=== PATIENT | female | born 1995 | race Two or more races ===

== ENCOUNTER 2016-11-21 09:18 | Day surgery (SDC) | payer BC ==
--- NOTE | 2016-11-20 14:30 | Pre-op HX & Phy Repo 2 SIG ---
DATE OF ADMISSION: 11/21/2016 PREOPERATIVE HISTORY AND PHYSICAL This patient has been scheduled for surgery tomorrow, which is 11/21/2016. CHIEF COMPLAINT: Pain and lump in the right axilla. HISTORY OF PRESENT ILLNESS: This is a 21-year-old female, who presented with pain and lump in the right axilla. She stated that she had an uncomplicated adenitis, which was treated conservatively and resolved, but about 5 to 6 days ago she developed a lump and pain, which has increased. She denied any fever or chills at this point. PAST MEDICAL HISTORY: She denies allergies, asthma, hypertension, cardiac or renal diseases. She has a history of diabetes type 1. PAST SURGICAL HISTORY: None. MEDICATIONS: Include insulin, gemfibrozil, niacin . SOCIAL HISTORY: The patient is a 21-year-old female, who is single without any children. 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 She denies smoking or drinking. REVIEW OF SYSTEMS: Noncontributory. PHYSICAL EXAMINATION: GENERAL: The patient appeared to be a well-developed, well-nourished, 31-year-old female, complaining of pain in the right axilla. HEENT: Head is normocephalic and atraumatic. Eyes, pupils are equal, round, and reactive to light. Mouth is clear. NECK: There is no palpable thyromegaly or adenopathy. CHEST: Clear to auscultation and percussion. HEART: There is no gallop or murmur. S1 and S2 are within normal limits. ABDOMEN: Soft, flat, and nontender. There is no palpable organomegaly. AXILLA: At the right axilla, the patient had a large abscess with frustration and erythema. Mid aspiration revealed thick pus. ASSESSMENT: 1. Abscess of the right axilla. PLAN: The patient has been scheduled for I and D of the abscess of the right axilla. The risks and benefits have been explained to her. The patient has been notified that she will have the change the dressing of infected wound till it healed up. She understood and granted consent form. Domenica Santiago M.D. DR: Concetta JOB#: [id number] CC: ADAM
[~2016-11-21] VITALS: Ht 154.9 cm; Wt 61.2 kg
[2016-11-21] VITALS (11 sets, daily range): BP systolic 115–138; BP diastolic 54–73
[~2016-11-21 09:18] MED LIST: APIDRA100 UNIT/2 SQ; CRESTOR10 M2 ORAL; GEMFIBROZIL600 MG ORAL; LANTUS SOL100 UNIT/1 SUBQ; NIACIN500 M1 PO; TOPIRAMATE25 MG ORAL
[2016-11-21] MEDS ORDERED: Bacitracin 50000 Units Vial ONE (09:38)
[2016-11-21 10:05] LABS: BASOPHILS % (AUTO) 0.8 % (0.0-2.0); EOSINOPHILS % (AUTO) 0.6 % (0.0-3.0); MEAN CORPUSCULAR HEMOGLOBIN 31.4 PG (27.0-31.0); MEAN CORPUSCULAR HGB CONC 34.7 G/DL (32.0-36.0); MEAN CORPUSCULAR VOLUME 91 FL (80-99); MEAN PLATELET VOLUME 6.3 FL (6.5-10.1); MONOCYTES % (AUTO) 6.8 % (1.0-10.0); NEUTROPHILS % (AUTO) 63.9 % (45.0-75.0); PLATELET COUNT 244 K/UL (150-450); RED BLOOD COUNT 4.09 M/UL (4.20-5.40); WHITE BLOOD COUNT 14.9 K/UL (4.8-10.8)
[2016-11-21 10:20] LABS: INR 0.9 (0.9-1.1); PROTHROMBIN TIME 9.9 SEC (9.30-11.50)
[2016-11-21 10:32] LABS: ANION GAP 18 (5-15); CALCIUM 9.1 mg/dL (8.6-10.2); CARBON DIOXIDE 19 mEQ/L (20-30); CHLORIDE 103 mEQ/L (98-107); CREATININE 0.6 mg/dL (0.5-0.9); GLOMERULAR FILTRATION RATE > 60 mL/min (>60); HEMOLYSIS 0; POTASSIUM 4.1 mEQ/L (3.4-4.9); SODIUM 140 mEQ/L (135-145)
--- NOTE | 2016-11-21 10:44 | Pre-Procedure Note/Attestation ---
Pre-Procedure Note/Attestation Complete Prior to Procedure Planned Procedure: right Procedure Narrative: I & D of Abscess right axilla Indications for Procedure Pre-Operative Diagnosis: Abscess Right axilla Attestation I attest that I discussed the nature of the procedure; its benefits; risks and complications; and alternatives (and the risks and benefits of such alternatives ), prior to the procedure, with the patient (or the patient's legal patient service representative). I attest that, if there was a reasonable possibility of needing a blood transfusion, the patient (or the patient's legal patient service representative) was given the [facility] standardized written summary, pursuant to the Bernard Carline Blood Safety Act ([place] Health and Safety Code # 1645, as amended). I attest that I re-evaluated the patient just prior to the surgery and that there has been no change in the patient's H&P, except as documented below: CANDIE GASTELUM Nov 21, 2016 10:44
[2016-11-21] MEDS ORDERED: Sterile Water Irrig 1000ml IRRIG ONE (10:45)
[2016-11-21] MEDS ORDERED: NS Irrig 1000ml ONE (10:45)
[2016-11-21] MEDS ORDERED: Ketorolac 30mg Inj ONE (10:45)
[2016-11-21] MEDS ORDERED: fentaNYL 100 mcg/2 mL IV ONE (10:45)
[2016-11-21] MEDS ORDERED: Propofol 10mg/ml 20ml IV ONE (10:45)
[2016-11-21] MEDS ORDERED: LR 1000ml ONE (10:45)
[2016-11-21] MEDS ORDERED: Midazolam 2mg/2ml Inj ONE (10:45)
[2016-11-21] MEDS ORDERED: LR 1000ml 1,000 ML IVLG SCH (11:19)
--- NOTE | 2016-11-21 11:27 | Brief Operative Note ---
Immediate Post Operative Note Operative Note Pre-op Diagnosis: Abscess Right axilla Procedure: I & D of abscess right axilla Post-op Diagnosis: same as pre-op Findings: consistent w/pre-op dx studies Surgeon: MD Kenny Inspector Eyeglass Frames: none Anesthesiologist: Dr. Pacheco Anesthesia: general Specimen: yes Complications: none Condition: stable Estimated Blood Loss: minimal Drains: none Packing: Betadine soaked sponge Implant(s) used?: No CANDIE GASTELUM Nov 21, 2016 11:27
--- NOTE | 2016-11-21 11:29 | Discharge Instructions ---
Discharge Instructions Discharge Instructions Follow up with: my office tomorrow Diet: diabetic calorie control Resume Normal Activity?: Yes Activity: as tolerated For Surgical Patients Clean and Dry: surgical site Dressing Care: keep dry and clean May shower: No For Congestive Heart Failure Reminder Report to your physician any weight gain of 5 pounds or more in one week. CANDIE GASTELUM Nov 21, 2016 11:29
[2016-11-21] MEDS ORDERED: Ketorolac 30mg Inj IV PRN (11:30)
[2016-11-21] MEDS ORDERED: DiphenhydrAMINE 50mg/ml Inj IVP PRN (11:30)
[2016-11-21] MEDS ORDERED: Meperidine 25mg/0.5ml Inj IM PRN (11:30)
[2016-11-21] MEDS ORDERED: Hydromorphone 0.5mg/0.5ml inj IVP PRN (11:30)
[2016-11-21] MEDS ORDERED: Midazolam 2mg/2ml Inj IVP PRN (11:30)
[2016-11-21] MEDS ORDERED: Metoclopramide 10mg/2ml Inj IVP PRN (11:30)
--- NOTE | 2016-11-21 11:38 | Anethesia Preoperative Eval ---
Anesthesia Pre-op PMH/ROS General Date of Evaluation: Nov 21, 2016 Time of Evaluation: 10:32 Anesthesiologist: Tara ASA Score: ASA 3 Mallampati Score Class I : Soft palate, uvula, fauces, pillars visible Class II: Soft palate, uvula, fauces visible Class III: Soft palate, base of uvula visible Class IV: Only hard plate visible Mallampati Classification: Class II Surgeon: Pamela Diagnosis: R axillary abscess Surgical Procedure: I&D of R axillary abscess Anesthesia History: none Family History: no anesthesia problems Allergies: Coded Allergies: PENICILLINS (Verified Allergy, Unknown, 11/20/16) HIVES Medications: see eMAR Past Medical History Cardiovascular: Denies: CAD, HTN, [place], arrhythmia, other, valve dz Pulmonary: Denies: COPD, DONA, asthma, other Gastrointestinal/Genitourinary: Denies: CRI, ESRD, GERD, other Neurologic/Psychiatric: Denies: CVA, TIA, dementia, depression/anxiety, other Endocrine: Reports: DM - type 1 on insulin, Denies: hypothyroidism, other, steroids HEENT: Denies: TAKOTNA (L), TAKOTNA (R), cataract (L), cataract (R), glaucoma, other Hematology/Immune: Denies: DVT, anemia, bleeding disorder, other Musculoskeletal/Integumentary: Denies: DDD, DJD, OA, RA, edema, other PMH Narrative: as above PSxH Narrative: none Anesthesia Pre-op Phys. Exam Physician Exam Last Vital Signs Date Time Temp Pulse Resp B/P Pulse Ox O2 Delivery O2 Flow Rate FiO2 11/21/16 09:52 98.2 94 18 115/67 98 Room Air Constitutional: NAD Neurologic: CN 2-12 intact Cardiovascular: RRR, no M/R/G Respiratory: CTA Gastrointestinal: S/NT/ND Airway Exam Mallampati Score: Class II MO: full Neck: flexible ROM: full Teeth: intact Dentures: no lower, no upper Anesthesia Pre-op A/P Labs Hematology Test 11/21/16 09:50 White Blood Count 14.9 K/UL (4.8-10.8) H Red Blood Count 4.09 M/UL (4.20-5.40) L Hemoglobin 12.9 G/DL (12.0-16.0) Hematocrit 37.1 % (37.0-47.0) Mean Corpuscular Volume 91 FL (80-99) Mean Corpuscular Hemoglobin 31.4 PG (27.0-31.0) H Mean Corpuscular Hemoglobin Concent 34.7 G/DL (32.0-36.0) Red Cell Distribution Width 11.0 % (11.6-14.8) L Platelet Count 244 K/UL (150-450) Mean Platelet Volume 6.3 FL (6.5-10.1) L Neutrophils (%) (Auto) 63.9 % (45.0-75.0) Lymphocytes (%) (Auto) 28.0 % (20.0-45.0) Monocytes (%) (Auto) 6.8 % (1.0-10.0) Eosinophils (%) (Auto) 0.6 % (0.0-3.0) Basophils (%) (Auto) 0.8 % (0.0-2.0) Coagulation Test 11/21/16 09:50 Prothrombin Time 9.9 SEC (9.30-11.50) Prothromb Time International Ratio 0.9 (0.9-1.1) Activated Partial Thromboplast Time 29 SEC (23-33) Chemistry Test 11/21/16 09:50 Sodium Level 140 mEQ/L (135-145) Potassium Level 4.1 mEQ/L (3.4-4.9) Chloride Level 103 mEQ/L (98-107) Carbon Dioxide Level 19 mEQ/L (20-30) L Anion Gap 18 (5-15) H Blood Urea Nitrogen 11 mg/dL (7-23) Creatinine 0.6 mg/dL (0.5-0.9) Estimat Glomerular Filtration Rate > 60 mL/min (>60) Glucose Level 193 mg/dL (74-106) H Calcium Level 9.1 mg/dL (8.6-10.2) Accucheck 171 at admission Urine Test Test 11/21/16 09:15 Urine HCG, Qualitative Negative Risk Assessment & Plan Assessment: ASA 3 Plan: GA with LMA Status Change Before Surgery: No Pre-Antibiotics Drug: Levoquin 500 mg. Given Within 1 Hr of Incision: Yes Time Given: 10:50 SHYLA MYLES M.D. Nov 21, 2016 11:38
--- NOTE | 2016-11-21 11:40 | Immediate Post-Op Evaluation ---
Immediate Post-Op Evalulation Immediate Post-Op Evalulation Procedure: I&D of R axillary abscess Date of Evaluation: Nov 21, 2016 Time of Evaluation: 11:38 IV Fluids: 800 Blood Products: none Estimated Blood Loss: min Urinary Output: none Blood Pressure Systolic: 135 Blood Pressure Diastolic: 73 Pulse Rate: 84 Respiratory Rate: 22 O2 Sat by Pulse Oximetry: 99 Temperature (Fahrenheit): 97.5 Pain Score (1-10): 2 Nausea: No Vomiting: No Complications none Patient Status: reacts, patent, none Hydration Status: adequate SHYLA MYLES M.D. Nov 21, 2016 11:40
--- NOTE | 2016-11-21 11:43 | 48 Hour Post Anesthesia Eval ---
Post Anesthesia Evaluation Procedure: I&D of R axillary abscess Date of Evaluation: Nov 21, 2016 Time of Evaluation: 12:15 Blood Pressure Systolic: 128 0: 56 Pulse Rate: 74 Respiratory Rate: 22 Temperature (Fahrenheit): 97.6 O2 Sat by Pulse Oximetry: 99 Airway: patent Nausea: No Vomiting: No Pain Intensity: 2 Hydration Status: adequate Cardiopulmonary Status: stable Mental Status/LOC: patient returned to baseline Follow-up Care/Observations: n/a Post-Anesthesia Complications: none Follow-up care needed: ready to discharge SHYLA MYLES M.D. Nov 21, 2016 11:43
--- NOTE | 2016-11-21 18:00 | Operative Note - Dictated ---
DATE OF OPERATION: 11/21/2016 PREOPERATIVE DIAGNOSIS: Abscess of the right axilla. POSTOPERATIVE DIAGNOSIS: Abscess of the right axilla. OPERATION: Incision and drainage of the abscess, right axilla. COMPLICATIONS: None SURGEON: Domenica Santiago M.D. STOCK SHEETS CLEANER INSPECTOR: None. ANESTHESIA: General with laryngeal mask. ANESTHESIOLOGIST: Bishnu Pacheco M.D. INDICATION: This is a 21-year-old female, who presented with pain and swelling of the right axilla and the patient has a history of hidradenitis which responded to the conservative treatment but she stated that about a week ago she started having swelling and pain in her axilla which gradually increased. Physical examination showed an abscess in the right axilla. DESCRIPTION OF PROCEDURE: The patient was placed supine on the operating table and after general anesthesia with laryngeal mask, the right axilla was properly prepped and draped. Transverse incision was given directly over the abscess was carried sharply through the subcutaneous tissue. Large amount of yellowish pus was drained from which culture was obtained. The cavity was unroofed with removing the skin and subcutaneous tissue at this area. The bleeding points were controlled. The infected necrotic tissues were removed, the cavity was irrigated with antibiotic solution and then it was packed with Betadine-soaked sponge. The patient tolerated the procedure very well and was transferred to recovery in stable condition and extubated. The sponge and needle count correct. Estimated Blood Loss 10 mL. Condition of the patient at the end of procedure is stable. Domenica Santiago M.D. DR: Gee JOB#: [id number] CC:
== END 2016-11-21 14:00 | disposition home or self-care (01) ==
LOC: SUR 09:18
DX: L02.411 Cutaneous abscess of right axilla (principal); E10.9 Type 1 diabetes mellitus without complications; Z79.4 Long term (current) use of insulin; Z79.899 Other long term (current) drug therapy; Z88.0 Allergy status to penicillin
CPT/HCPCS: 10060; 36415; 80048; 81025; 82962; 85025; 85610; 85730; 87070; 87075; 87181; 87205; J1170; J1815; J1885; J1956; J2250; J2405; J2704; J3010; J7120; 94003; 94150